=== PATIENT | female | born 1935 | race African-American/Black ===

== ENCOUNTER 2017-06-11 00:10 | Emergency (ER) | payer MEDICARE, OTHER ==
[2017-06-11] MEDS ORDERED: Magnesium Sulfate 2 GM/NS 0.9% 50 ML BAG ONE (01:01)
[2017-06-11 01:27] LABS: ALT (SGPT) 11 U/L (8-55); AST (SGOT) 14 U/L (5-34); Albumin 3.5 g/dL (3.4-4.8); Alkaline Phosphatase 67 U/L (40-150); Anion Gap 14 mmol/L (10-20); BUN (Urea Nitrogen) 13 mg/dL (9.8-20.1); Bilirubin, Total 0.4 mg/dL (0.2-1.2); Calc. Creatinine Clearance 0 mL/min (70-130); Carbon Dioxide 25 mmol/L (23-31); Chloride 102 mmol/L (98-107); Estimated GFR-MDRD 87; Globulin 4.6 g/dL (2.4-3.5); Glucose 112 mg/dL (83-110); Potassium 3.9 mmol/L (3.5-5.1); Protein, Total 8.1 g/dL (6.0-8.3); Sodium 137 mmol/L (136-145)
[2017-06-11 01:32] LABS: #Eosinphils 0.2 thou/uL (0.0-0.7); #Lymphocytes 1.7 thou/uL (1.20-3.40); #Monocytes 0.5 thou/uL (0.11-0.59); #Neutrophils 3.1 thou/uL (1.40-6.50); %Basophils 0.8 % (0.0-1.0); %Eosinophils 4.4 % (0.0-10.0); %Lymphocytes 30.7 % (21.0-51.0); %Monocytes 8.5 % (0.0-10.0); %Neutrophils 55.5 % (42.0-75.0); Hemoglobin 16.1 g/dL (12.0-16.0); Mean Corpuscular HGB CONC 32.3 g/dL (32.0-36.0); Mean Corpuscular Hemoglobin 28.9 pg (27.0-31.0); Mean Corpuscular Volume 89.5 fl (81.0-99.0); Mean Platelet Volume 9.3 fL (7.4-10.4); Platelet Count 142 thou/uL (130-400); RBC Distribution Width 12.2 % (11.5-14.5); Red Blood Cell (RBC) Count 5.57 mill/uL (4.20-5.40); White Blood Cell (WBC) Count 5.6 thou/uL (4.8-10.8)
[2017-06-11 01:34] LABS: CKMB 0.5 ng/mL (0-6.6); Troponin I 0.027 ng/mL (< 0.028)
[2017-06-11] MEDS ORDERED: cefTRIAXone\\ROCEPHIN 1 GM VIAL ONE (01:52)
[2017-06-11] MEDS ORDERED: Azithromycin 500 MG VIAL ONE (01:52)
[2017-06-11 02:00] LABS: Base Excess 3.1 mEq/L (-2 - +2)
[2017-06-11 02:01] LABS: Hemoglobin (Hb) 17.8 g/dL (11.7-16.1)
[2017-06-11 02:04] LABS: pH (venous) 7.47 (7.35-7.45)
--- NOTE | 2017-06-11 08:38 | RAD ---
PORTABLE CHEST: Date: 06-11-17 Provided Clinical History: Cough, fever. FINDINGS: Comparison 08-28-14. Evaluation is limited by patient body habitus. The lungs are hypoinflated, accentuating pulmonary bro nchovascular markings. Cardiomediastinal silhouette is unchanged in appearance. Conspicuous appearanc e to the hilar regions is stable and presumably is on the basis of vascular prominence. Hilar adenopa thy cannot be excluded. No pleural fluid or pneumothorax apparent. IMPRESSION: Hypoinflated exam. Follow up PA and lateral views of the chest are recommended. POS: OFF
[2017-06-11] MEDS ORDERED: Sodium Chloride 0.9% 1,000 ML BAG ONE (11:49)
== END 2017-06-11 02:25 | disposition short-term general hospital (02) ==
LOC: MADERS 00:10
DX: J11.1 Influenza due to unidentified influenza virus with other respiratory manifestations (principal); J40 Bronchitis, not specified as acute or chronic; I10 Essential (primary) hypertension; Z79.82 Long term (current) use of aspirin; Z86.73 Personal history of transient ischemic attack (TIA), and cerebral infarction without residual deficits; Z79.899 Other long term (current) drug therapy; Z87.891 Personal history of nicotine dependence
CPT/HCPCS: 36415; 71045; 80053; 82553; 82805; 83605; 83735; 83880; 84484; 85025; 87040; 93005; 94760; 96361; 96365; 96375; J0456; J0696; J3475; J7050; J7620

== ENCOUNTER 2018-02-21 03:57 | Emergency (ER) | payer MEDICARE, MEDICAID ==
[2018-02-21] MEDS ORDERED: Ketamine 50 MG/ML VIAL ONE (04:33)
[2018-02-21] MEDS ORDERED: metroNIDAZOLE 500 MG/100 ML BAG ONE (04:58)
[2018-02-21 05:19] LABS: #Lymphocytes 1.2 thou/uL (1.20-3.40); #Monocytes 0.4 thou/uL (0.11-0.59); #Neutrophils 5.4 thou/uL (1.40-6.50); %Basophils 0.7 % (0.0-1.0); %Eosinophils 0.3 % (0.0-10.0); %Lymphocytes 17.4 % (21.0-51.0); %Monocytes 5.1 % (0.0-10.0); %Neutrophils 76.4 % (42.0-75.0); Hemoglobin 15.4 g/dL (12.0-16.0); Mean Corpuscular HGB CONC 31.8 g/dL (32.0-36.0); Mean Corpuscular Hemoglobin 28.8 pg (27.0-31.0); Mean Corpuscular Volume 90.5 fL (78.0-98.0); Mean Platelet Volume 9.6 fL (7.4-10.4); Platelet Count 173 thou/uL (130-400); RBC Distribution Width 11.9 % (11.5-14.5); Red Blood Cell (RBC) Count 5.34 mill/uL (4.20-5.40); White Blood Cell (WBC) Count 7.1 thou/uL (4.8-10.8)
[2018-02-21] MEDS ORDERED: Piperacillin/Tazobactam 3.375 GM VIAL ONE (05:21)
[2018-02-21 05:29] LABS: Base Excess-Venous 0.5 mmol/L (0 (+/- 2.5)); Bicarbonate (HCO3v) 27.9 mmol/L (1.0-85.0); CO2 Tension (PvCO2) 52.7 mmHg (41.0-51.0); O2 Tension (PvO2) 37.9 mmHg (35.0-45.0); pH (Venous) 7.332 (7.35-7.45)
[2018-02-21 05:30] LABS: Calcium, Ionized 1.39 mmol/L (1.12-1.32); Hemoglobin - Calc 19.4 g/dL (12.0-18.0); Potassium 3.3 mmol/L (3.4-4.7); T. Carbon Dioxide 29.5 mmol/L (1.0-85.0)
[2018-02-21 05:35] LABS: ALT (SGPT) 9 U/L (8-55); AST (SGOT) 14 U/L (5-34); Alkaline Phosphatase 76 U/L (40-150); Anion Gap 17 mmol/L (10-20); BUN (Urea Nitrogen) 14 mg/dL (9.8-20.1); Bilirubin, Total 0.5 mg/dL (0.2-1.2); CK (CPK) 44 U/L (29-168); Calc. Creatinine Clearance 0 mL/min (70-130); Calcium 11.8 mg/dL (7.8-10.44); Carbon Dioxide 24 mmol/L (23-31); Chloride 100 mmol/L (98-107); Estimated GFR-MDRD 81; Globulin 4.9 g/dL (2.4-3.5); Glucose 182 mg/dL (83-110); Lipase 22 U/L (8-78); Potassium 3.5 mmol/L (3.5-5.1); Protein, Total 8.9 g/dL (6.0-8.3); Sodium 137 mmol/L (136-145)
[2018-02-21 05:36] LABS: Troponin I 0.038 ng/mL (< 0.028)
[2018-02-21 05:38] LABS: CKMB 0.7 ng/mL (0-6.6)
[2018-02-21 06:21] LABS: Bilirubin Negative (Negative); Blood, Urine Negative (Negative); Clarity Clear (Clear); Glucose, Urine (Dipstick) Negative (Negative); Leukocyte Negative (Negative); Nitrite Negative (Negative); Protein, Urine (Dipstick) > or equal to 300 mg/dL (Neg-Trace); Urobilinogen 0.2 mg/dL (0.2-1.0); pH, Urine 6.5 (5.0-9.0)
[2018-02-21 06:29] LABS: Bacteria/HPF Rare-Few HPF (None Seen); RBC/HPF 0-3 HPF (0-3); Specific Gravity, Urine 1.023 (1.002-1.036); Squamous Epithelial 0-3 HPF (0-3)
--- NOTE | 2018-02-21 08:37 | RAD ---
CHEST 1 VIEW: Date: 02/21/18 HISTORY: Dyspnea. COMPARISON: Radiograph same date. FINDINGS: Patient with endotracheal tube above the yary approximately 3.8 cm. Interval improvement in aeratio n right upper lobe. Enteric tube is not seen on this examination. IMPRESSION: Improved aeration right upper lobe. POS: [facility]
== END 2018-02-21 05:45 | disposition short-term general hospital (02) ==
LOC: MADERS 03:57
DX: J96.00 Acute respiratory failure, unspecified whether with hypoxia or hypercapnia (principal); T17.200A Unspecified foreign body in pharynx causing asphyxiation, initial encounter; Z86.73 Personal history of transient ischemic attack (TIA), and cerebral infarction without residual deficits; I10 Essential (primary) hypertension; Z87.891 Personal history of nicotine dependence
CPT/HCPCS: 31500; 51702; 71045; 80053; 81003; 81015; 82330; 82550; 82553; 82803; 83605; 83690; 84484; 85025; 87040; 87077; 87086; 87186; 93005; 96365; 96368; 99292; J2543

== ENCOUNTER 2018-08-30 09:15 | Emergency (ER) | payer MEDICARE, OTHER ==
[2018-08-30 09:31] LABS: #Basophils 0.1 thou/uL (0.0-0.2); #Eosinphils 0.3 thou/uL (0.0-0.7); #Monocytes 0.5 thou/uL (0.11-0.59); #Neutrophils 1.5 thou/uL (1.40-6.50); %Basophils 2.4 % (0.0-1.0); %Lymphocytes 45.6 % (21.0-51.0); %Monocytes 11.1 % (0.0-10.0); Hemoglobin 11.8 g/dL (12.0-16.0); Mean Corpuscular HGB CONC 31.1 g/dL (32.0-36.0); Mean Corpuscular Hemoglobin 27.6 pg (27.0-31.0); Mean Corpuscular Volume 88.7 fL (78.0-98.0); Mean Platelet Volume 8.2 fL (7.4-10.4); Platelet Count 200 thou/uL (130-400); RBC Distribution Width 13.5 % (11.5-14.5); Red Blood Cell (RBC) Count 4.29 mill/uL (4.20-5.40); White Blood Cell (WBC) Count 4.3 thou/uL (4.8-10.8)
[2018-08-30 09:47] LABS: ALT (SGPT) 11 U/L (8-55); AST (SGOT) 23 U/L (5-34); Albumin 3.5 g/dL (3.4-4.8); Alkaline Phosphatase 62 U/L (40-150); Anion Gap 13 mmol/L (10-20); BUN (Urea Nitrogen) 13 mg/dL (9.8-20.1); Bilirubin, Total 0.2 mg/dL (0.2-1.2); Calc. Creatinine Clearance 0 mL/min (70-130); Calcium 10.4 mg/dL (7.8-10.44); Carbon Dioxide 26 mmol/L (23-31); Chloride 103 mmol/L (98-107); Estimated GFR-MDRD 79; Globulin 4.2 g/dL (2.4-3.5); Glucose 95 mg/dL (83-110); Potassium 4.4 mmol/L (3.5-5.1); Protein, Total 7.7 g/dL (6.0-8.3); Sodium 138 mmol/L (136-145)
[2018-08-30 09:50] LABS: CKMB 0.5 ng/mL (0-6.6); INR-International Normal Ratio 0.9; Prothrombin Time 12.6 SEC (12.0-14.7); Troponin I 0.018 ng/mL (< 0.028)
[2018-08-30 09:51] LABS: PTT 21.7 SEC (22.9-36.1)
--- NOTE | 2018-08-31 08:00 | CT ---
CT BRAIN NONCONTRAST: DATE: 08/30/2018 Time: 9:28 AM HISTORY: 83-year-old female with acute aphasia Dr. Franklin reported the findings by telephone to Dr. Henning of the [place] emergency department at 9:42 AM on 08/30/2018 COMPARISON: 08/27/2014 FINDINGS: There is a new finding of moderately low attenuation with effacement of bloom-white junction, at the l ateral upper aspect of the left frontal lobe, consistent with cytotoxic edema. Again noted is the large region of encephalomalacia and gliosis involving the right temporal, frontal , and parietal lobes, with associated ex vacuo dilation of the right lateral ventricle, and wallerian degeneration of the right cerebral peduncle. Again noted is the small region of encephalomalacia and gliosis involving left parieto-occipital junc tion. Small to moderate size region of encephalomalacia and gliosis in the posterior aspect of right cerebe llar hemisphere, new or larger since prior CT. Small to moderate-sized region of encephalomalacia and gliosis in the superior medial aspect of right cerebellar hemisphere, new since prior CT. No acute hemorrhage, obstructive hydrocephalus, mass effect, midline shift, or extra-axial fluid dimitri ection. No acute calvarial fracture. IMPRESSION: 1. Evidence for acute, at least moderate-sized, and possibly large, infarction in the left middle cer ebral artery territory. 2. 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 3. Small old infarction either at posterior left middle cerebral artery territory, or watershed zone between left MCA and left [employer]. 4. 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 5. 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 6. No acute intracranial hemorrhage or mass effect.
== END 2018-08-30 10:55 | disposition short-term general hospital (02) ==
LOC: MADERS 09:15
DX: I63.412 Cerebral infarction due to embolism of left middle cerebral artery (principal); I10 Essential (primary) hypertension; Z86.73 Personal history of transient ischemic attack (TIA), and cerebral infarction without residual deficits; Z87.891 Personal history of nicotine dependence; Z79.899 Other long term (current) drug therapy
CPT/HCPCS: 51702; 70450; 80053; 82553; 82962; 84484; 85025; 85610; 85730; 93005; 94760; 96374; 99285; J2997; 36416

== ENCOUNTER 2018-10-14 16:14 | Emergency (ER) | payer MEDICARE, OTHER | END 2018-10-14 18:53 | disposition home or self-care (01) | LOC: MADERS 16:14 | DX: R06.00 Dyspnea, unspecified (principal); Z86.73 Personal history of transient ischemic attack (TIA), and cerebral infarction without residual deficits; I10 Essential (primary) hypertension; Z79.899 Other long term (current) drug therapy; Z79.82 Long term (current) use of aspirin | CPT/HCPCS: 99284 ==

== ENCOUNTER 2019-06-21 04:57 | Emergency (ER) | payer MEDICARE ==
[2019-06-21] MEDS ORDERED: Sodium Chloride 0.9% 1,000 ML ONE (05:42)
[2019-06-21 06:11] LABS: Base Excess (BEa) POC ABG -3.5 mmol/L (0 (+/- 2.5)); Calcium, Ionized 1.41 mmol/L (1.15-1.33); Hemoglobin POC ABG 12.2 g/dL (12.0-17.0); Potassium POC ABG 3.3 mmol/L (3.5-4.5); pH (Arterial) 7.395 (7.35-7.45)
[2019-06-21 06:13] LABS: Hemoglobin 10.1 g/dL (12.0-16.0); Mean Corpuscular Hemoglobin 19.7 pg (27.0-31.0); Mean Corpuscular Volume 70.2 fL (78.0-98.0); Red Blood Cell (RBC) Count 5.15 mill/uL (4.20-5.40); White Blood Cell (WBC) Count 13.8 thou/uL (4.8-10.8)
[2019-06-21 06:14] LABS: #Neutrophils 12.2 thou/uL (1.40-6.50); %Basophils 0.9 % (0.0-1.0); %Eosinophils 0.1 % (0.0-10.0); %Lymphocytes 3.9 % (21.0-51.0); %Neutrophils 88.2 % (42.0-75.0); Manual Diff?? YES; Mean Platelet Volume 8.2 fL (7.4-10.4); Platelet Count 328 thou/uL (130-400); RBC Distribution Width 18.7 % (11.5-14.5)
[2019-06-21 06:15] LABS: #Basophils 0.1 thou/uL (0.0-0.2)
[2019-06-21 06:24] LABS: Band 31 % (5-11); Lymphocytes 6 % (21-51); Monocytes 9 % (0-10)
[2019-06-21 06:25] LABS: Elliptocytes SLIGHT = 2-5 cells (100X) (0-1/hpf); Hypochromia SLIGHT = 6-15 cells (100X) (0-5/hpf); Microcytosis MODERATE=15-30 cells (100X) (0-5/hpf); Schistocytes SLIGHT = 2-5 cells (100X) (0-1/hpf)
[2019-06-21] MEDS ORDERED: Cefepime 2 GM VIAL ONE (06:25)
[2019-06-21 06:26] LABS: Target Cells SLIGHT = 2-5 cells (100X) (0-1/hpf); Toxic Granulation SLIGHT
[2019-06-21] MEDS ORDERED: Sodium Chloride 0.9% 100 ML ONE (06:26)
[2019-06-21 06:27] LABS: #Lymphocytes 0.5 thou/uL (1.20-3.40); ALT (SGPT) 61 U/L (8-55); AST (SGOT) 65 U/L (5-34); Albumin 2.8 g/dL (3.4-4.8); Alkaline Phosphatase 63 U/L (40-110); Anion Gap 18 mmol/L (10-20); BUN (Urea Nitrogen) 22 mg/dL (9.8-20.1); Bilirubin, Total 0.3 mg/dL (0.2-1.2); CK (CPK) 22 U/L (29-168); Calc. Creatinine Clearance 0 mL/min (70-130); Calcium 10.3 mg/dL (7.8-10.44); Carbon Dioxide 20 mmol/L (23-31); Chloride 103 mmol/L (98-107); Estimated GFR-MDRD 56; Globulin 4.3 g/dL (2.4-3.5); Glucose 180 mg/dL (83-110); Potassium 3.7 mmol/L (3.5-5.1); Protein, Total 7.1 g/dL (6.0-8.3); Sodium 137 mmol/L (136-145)
[2019-06-21 06:31] LABS: Critical Call Chem-Lactate 7.3
[2019-06-21 06:44] LABS: CKMB 1.1 ng/mL (0-6.6)
[2019-06-21] MEDS ORDERED: Sodium Chloride 0.9% 250 ML 250 ML ONE (07:04)
[2019-06-21 07:21] LABS: Bilirubin Negative (Negative); Blood, Urine Negative (Negative); Clarity Clear (Clear); Glucose, Urine (Dipstick) Negative (Negative); Leukocyte Negative (Negative); Nitrite Negative (Negative); Protein, Urine (Dipstick) Negative (Neg-Trace); Urobilinogen 0.2 mg/dL (Less than 2)
--- NOTE | 2019-06-21 08:37 | RAD ---
PORTABLE CHEST 1 VIEW: DATE: 06/21/2019. TIME: 5:25 AM. HISTORY: Right lower lobe pneumonia. FINDINGS/IMPRESSION: Comparison is made with the exam of 11/11/2018. The heart size is borderline. Mastoid density in the left hilar region is again seen. The lungs are expanded without lobar consolidation, pneumothoraces, or pleural effusions. POS: [facility]
== END 2019-06-21 07:37 | disposition short-term general hospital (02) ==
LOC: MADERS 04:57
DX: A41.9 Sepsis, unspecified organism (principal); R65.21 Severe sepsis with septic shock; J18.9 Pneumonia, unspecified organism; I10 Essential (primary) hypertension; Z86.73 Personal history of transient ischemic attack (TIA), and cerebral infarction without residual deficits; Z87.891 Personal history of nicotine dependence; Z79.899 Other long term (current) drug therapy
CPT/HCPCS: 51702; 71045; 80053; 81003; 82330; 82550; 82553; 82803; 83605; 83880; 84484; 85025; 87040; 93005; 94760; 96361; 96365; 96367; J0692; J3370; J3490; J7050